=== PATIENT | male | born 1975 | race Caucasian/White ===

== ENCOUNTER 2017-02-18 00:13 | Outpatient (CLI) | payer MEDICAID | END 2017-02-18 00:14 | disposition EMS.NT | LOC: EMS 00:13 | PROVIDERS: ATTEND Surgery | DX: R41.82 Altered mental status, unspecified (principal) ==

== ENCOUNTER 2017-02-18 05:23 | Outpatient (CLI) | payer MEDICAID | END 2017-02-18 05:24 | disposition home or self-care (01) | LOC: LAB 05:23 | PROVIDERS: ATTEND Pathology Blood Banking & Transfusion Medicine | DX: Z01.89 Encounter for other specified special examinations (principal) | CPT/HCPCS: 36415 ==

== ENCOUNTER 2017-02-27 19:05 | Emergency (ER) | payer MEDICAID ==
[2017-02-27 19:17] VITALS: BP 151/84
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
[2017-02-27 20:01] LABS: BASOPHILS # (AUTO) 0.1 10^3/uL (0.0-0.1); BASOPHILS % (AUTO) 0.7 %; EOSINOPHILS # (AUTO) 0.3 10^3/uL (0.0-0.7); EOSINOPHILS % (AUTO) 3.4 %; HCT - HEMATOCRIT 44.6 % (42.0-52.0); HGB - HEMOGLOBIN 15.1 g/dL (14.0-18.0); LYMPHOCYTES % (AUTO) 25.3 %; MEAN CORPUSCULAR HEMOGLOBIN 31.2 pg (27.0-31.0); MEAN CORPUSCULAR HGB CONC 33.7 g/dL (32.0-36.0); MEAN CORPUSCULAR VOLUME 92.4 fL (80.0-94.0); MEAN PLATELET VOLUME 7.7 fL (7.4-11.4); MONOCYTES # (AUTO) 0.7 10^3/uL (0.0-1.0); MONOCYTES % (AUTO) 9.1 %; NEUTROPHILS # (AUTO) 4.8 10^3/uL (1.5-6.6); NEUTROPHILS % (AUTO) 61.5 %; RED BLOOD COUNT 4.83 10^6/uL (4.70-6.10); RED CELL DISTRIBUTION WIDTH 13.5 % (12.0-15.0); UNCORRECTED WHITE BLOOD COUNT 7.8 x10^3/uL; WHITE BLOOD COUNT 7.8 x10^3/uL (4.8-10.8)
[2017-02-27 20:20] LABS: ACETAMINOPHEN < 10 ug/mL (10-30); ALBUMIN/GLOBULIN RATIO 1.5 (1.0-2.2); BILIRUBIN,TOTAL 0.2 mg/dL (0.2-1.0); BUN - BLOOD UREA NITROGEN 19 mg/dL (6-20); CALCIUM 9.4 mg/dL (8.5-10.3); CARBON DIOXIDE - CO2 28 mmol/L (21-32); CHLORIDE 100 mmol/L (101-111); CREATININE 0.9 mg/dL (0.6-1.2); GFR - MDRD 92 (>89); GLUCOSE 90 mg/dL (70-100); LIPASE 22 U/L (22-51); POTASSIUM 3.9 mmol/L (3.5-5.0); SALICYLATE < 6.0 mg/dL; SODIUM 142 mmol/L (135-145); TOTAL PROTEIN 7.6 g/dL (6.7-8.2)
[2017-02-27 20:48] LABS: BILIRUBIN,URINE NEGATIVE (NEGATIVE)
[2017-02-27 20:49] LABS: UA CHARGE (STRIP ONLY) YES; UR CULTURE IF IND NOT INDICATED
== END 2017-02-27 21:20 | disposition home or self-care (01) ==
LOC: ED 19:05
DX: Z02.89 Encounter for other administrative examinations (principal); F20.9 Schizophrenia, unspecified; F14.10 Cocaine abuse, uncomplicated; F15.10 Other stimulant abuse, uncomplicated; F12.10 Cannabis abuse, uncomplicated
CPT/HCPCS: 36415; 80053; 80306; 80307; 80320; 80329; 81001; 81003; 83690; 85025; 87086; 93005; 99282

== ENCOUNTER 2018-03-11 13:12 | Emergency (ER) | payer MEDICAID ==
[2018-03-11] MEDS ORDERED: BUFFERED LIDOCAINE 10 ML SYRINGE SUBQ STA (14:08)
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
[2018-03-11 14:36] VITALS: BP 119/82
== END 2018-03-11 14:40 | disposition home or self-care (01) ==
LOC: ED 13:12
DX: S01.111A Laceration without foreign body of right eyelid and periocular area, initial encounter (principal); W22.8XXA Striking against or struck by other objects, initial encounter; H57.02 Anisocoria
CPT/HCPCS: 12011; 99282; 99283

== ENCOUNTER 2019-04-28 21:53 | Emergency (ER) | payer MEDICAID ==
--- NOTE | 2019-04-28 21:56 | ED Physician Documentation ---
History of Present Illness - Stated complaint Stated Complaint: WRIST LAC - Chief complaint Chief Complaint: MHE - History obtained from History obtained from: Patient (the patient is a 43 y/o m who states he is hearing voices that are telling him to injure himself. he reports he tried cutting his left wrist, he reports he is right hand dominant. the patient is here initially voluntarily but later while observing the patient the patient st ates that he wants to leave so he can kill himself. At this point the patient is no longer in a voluntary status he is involuntary.) Review of Systems Unable to obtain: Other (psychosis) PD PAST MEDICAL HISTORY - Past Medical History Psych: Anxiety, Schizophrenia - Past Surgical History Past Surgical History: No - Present Medications Home Medications: Ambulatory Orders Medication Instructions Recorded Confirmed Olanzapine [Zyprexa] 10 mg PO DAILY #20 tablet 08/08/15 PARoxetine HCl [Paxil] 20 mg PO DAILY 11/10/15 11/10/15 - Allergies Allergies/Adverse Reactions: Allergies Allergy/AdvReac Type Severity Reaction Status Date / Time alprazolam [From Xanax] Allergy Unknown Verified 04/28/19 21:56 - Social History Does the pt smoke?: No Smoking Status: Never smoker Does the pt drink ETOH?: No Does the pt have substance abuse?: No - Immunizations Immunizations are current?: Yes - POLST Patient has POLST: No PD ED PE NORMAL - Vitals Vital signs reviewed: Yes - General General: Alert and oriented X 3, No acute distress, Well developed/nourished - HEENT HEENT: Atraumatic, PERRL, Moist mucous membranes - Neck Neck: Supple, no meningeal sign - Cardiac Cardiac: RRR, Strong equal pulses - Respiratory Respiratory: No respiratory distress, Clear bilaterally - Abdomen Abdomen: Normal bowel sounds, Soft, Non tender, Non distended - Derm Derm: Normal color, Warm and dry, No rash, Other (superficial abrasions over v olar aspect of left wrist.) - Extremities Extremities: No deformity, Other (superficial abrasions to left wrist, radian/median/ulnar motor and sensory exam are intact. silt, compartment soft, nv intact, radial pulses 2+ and symettric, ) - Neuro Neuro: Alert and oriented X 3, cash person 2-12 intact, No motor deficit, No sensory deficit, Normal speech - Psych Psych: Other (suicidal) Results - Vitals Vitals: Vital Signs - 24 hr 04/28/19 04/28/19 04/29/19 21:56 22:46 00:20 Temperature 36.6 C Heart Rate 62 Respiratory 14 16 16 Rate Blood Pressure 150/100 H O2 Saturation 95 04/29/19 04/29/19 00:45 04:29 Temperature Heart Rate Respiratory 15 14 Rate Blood Pressure O2 Saturation Oxygen O2 Source Room air - EKG (time done) 22:40 Rate: Rate (enter#) (81), Other (no stemi) Rhythm: NSR [place]: Normal Ischemia: Other (early repol) - Labs Labs: Laboratory Tests 04/28/19 04/28/19 04/28/19 22:10 22:33 22:33 WBC 8.9 RBC 5.24 Hgb 16.3 Hct 47.9 MCV 91.4 MCH 31.1 H MCHC 34.0 RDW 12.1 Plt Count 270 MPV 9.9 Neut # (Auto) 6.7 H Lymph # (Auto) 1.5 [place] # (Auto) 0.5 Eos # (Auto) 0.0 Baso # (Auto) 0.0 Absolute Nucleated RBC 0.00 Nucleated RBC % 0.0 Sodium 138 Potassium 3.7 Chloride 97 L Carbon Dioxide 30 Anion Gap 11.0 BUN 20 Creatinine 1.0 Estimated GFR (MDRD) 81 L Glucose 136 H Calcium 9.7 TSH Urine Color YELLOW Urine Clarity CLEAR Urine pH 5.5 Ur Specific [place] >=1.030 H Urine Protein TRACE Urine Glucose (UA) NEGATIVE Urine Ketones NEGATIVE Urine Occult Blood NEGATIVE Urine Nitrite NEGATIVE Urine Bilirubin NEGATIVE Urine Urobilinogen 0.2 (NORMAL) Ur Leukocyte Esterase NEGATIVE Ur Microscopic Review NOT INDICATED Urine Culture Comments NOT INDICATED Salicylates < 6.0 Urine Opiates Screen NEGATIVE Ur Oxycodone Screen NEGATIVE Urine Methadone Screen NEGATIVE Ur Propoxyphene Screen NEGATIVE Acetaminophen < 10 L Ur Barbiturates Screen NEGATIVE Ur Tricyclics Screen NEGATIVE Ur Phencyclidine Scrn NEGATIVE Ur Amphetamine Screen NEGATIVE U Methamphetamines Scrn NEGATIVE U Benzodiazepines Scrn NEGATIVE Urine Cocaine Screen NEGATIVE U Cannabinoids Screen NEGATIVE Ethyl Alcohol < 5.0 04/28/19 22:33 WBC RBC Hgb Hct MCV MCH MCHC RDW Plt Count MPV Neut # (Auto) Lymph # (Auto) [place] # (Auto) Eos # (Auto) Baso # (Auto) Absolute Nucleated RBC Nucleated RBC % Sodium Potassium Chloride Carbon Dioxide Anion Gap BUN Creatinine Estimated GFR (MDRD) Glucose Calcium TSH 8.75 H Urine Color Urine Clarity Urine pH Ur Specific [place] Urine Protein Urine Glucose (UA) Urine Ketones Urine Occult Blood Urine Nitrite Urine Bilirubin Urine Urobilinogen Ur Leukocyte Esterase Ur Microscopic Review Urine Culture Comments Salicylates Urine Opiates Screen Ur Oxycodone Screen Urine Methadone Screen Ur Propoxyphene Screen Acetaminophen Ur Barbiturates Screen Ur Tricyclics Screen Ur Phencyclidine Scrn Ur Amphetamine Screen U Methamphetamines Scrn U Benzodiazepines Scrn Urine Cocaine Screen U Cannabinoids Screen Ethyl Alcohol PD MEDICAL DECISION MAKING - ED course Complexity details: other (case d/w telepsych who recommends inpatient admission for acute psychosis/schizophrenia. social work consulted for placement.) Departure - Departure Disposition: 65 Psych Hosp/Unit DC/Xfer Clinical Impression: Suicidal thoughts Schizophrenia Qualifiers: Schizophrenia type: unspecified Qualified Code(s): F20.9 - Schizophrenia, unspecified Psychosis Qualifiers: Psychosis type: schizophrenia Schizophrenia type: unspecified Qualified Code(s): F20.9 - Schizophrenia, unspecified Condition: Fair
[2019-04-28] MEDS ORDERED: BACITRACIN ZINC OINT 1 PACKET TOP STA (22:04)
[2019-04-28] MEDS ORDERED: TETANUS/DIPHTHERIA/PERTUSSIS 0.5 ML SYRINGE IM ONE (22:04)
[2019-04-28 22:29] LABS: MUDS CUTOFF CONCENTRATIONS CUTOFF CONC BELOW:
[2019-04-28 22:33] LABS: BILIRUBIN,URINE NEGATIVE (NEGATIVE); GLUCOSE, URINE (UA) NEGATIVE (NEGATIVE); KETONES,URINE (UA) NEGATIVE (NEGATIVE); LEUKOCYTE ESTERASE, URINE NEGATIVE (NEGATIVE); NITRITE,URINE NEGATIVE (NEGATIVE); OCCULT BLOOD,URINE NEGATIVE (NEGATIVE); PH,URINE 5.5 PH (5.0-7.5); PROTEIN,URINE TRACE mg/dL (NEGATIVE); UROBILINOGEN,URINE 0.2 (NORMAL) E.U./dL (NORMAL)
[2019-04-28 22:39] LABS: BASOPHILS % (AUTO) 0.5 %; EOSINOPHILS % (AUTO) 0.1 %; HGB - HEMOGLOBIN 16.3 g/dL (14.0-18.0); LYMPHOCYTES # (AUTO) 1.5 10^3/uL (1.5-3.5); LYMPHOCYTES % (AUTO) 17.3 %; MEAN CORPUSCULAR HEMOGLOBIN 31.1 pg (27.0-31.0); MEAN CORPUSCULAR VOLUME 91.4 fL (80.0-94.0); MEAN PLATELET VOLUME 9.9 fL (7.4-11.4); MONOCYTES # (AUTO) 0.5 10^3/uL (0.0-1.0); MONOCYTES % (AUTO) 6.1 %; NEUTROPHILS # (AUTO) 6.7 10^3/uL (1.5-6.6); NEUTROPHILS % (AUTO) 75.7 %; PLT - PLATELET COUNT 270 10^3/uL (130-450); RED BLOOD COUNT 5.24 10^6/uL (4.70-6.10); RED CELL DISTRIBUTION WIDTH 12.1 % (12.0-15.0); WHITE BLOOD COUNT 8.9 x10^3/uL (4.8-10.8)
[2019-04-28 22:40] LABS: CLARITY,URINE CLEAR (CLEAR)
[2019-04-28 22:43] LABS: AMPHETAMINE SCREEN,URINE NEGATIVE (NEGATIVE); BENZODIAZEPINES SCREEN, URINE NEGATIVE (NEGATIVE); COCAINE SCREEN URINE NEGATIVE (NEGATIVE); METHADONE SCREEN, URINE NEGATIVE (NEGATIVE); METHAMPHETAMINES SCREEN, URINE NEGATIVE (NEGATIVE); OPIATE SCREEN, URINE NEGATIVE (NEGATIVE); OXYCODONE SCREEN, URINE NEGATIVE (NEGATIVE); PROPOXYPHENE SCREEN, URINE NEGATIVE (NEGATIVE); TRICYCLIC ANTIDEPRESSANT,URINE NEGATIVE (NEGATIVE)
[2019-04-28 22:53] LABS: ACETAMINOPHEN < 10 ug/mL (10-30); BUN - BLOOD UREA NITROGEN 20 mg/dL (6-20); CALCIUM 9.7 mg/dL (8.5-10.3); CARBON DIOXIDE - CO2 30 mmol/L (21-32); CHLORIDE 97 mmol/L (101-111); GFR - MDRD 81 (>89); GLUCOSE 136 mg/dL (70-100); SALICYLATE < 6.0 mg/dL; SODIUM 138 mmol/L (135-145)
[2019-04-28] MEDS ORDERED: OLANZapine ODT 5 MG TABLET TL STA (22:57)
--- NOTE | 2019-04-29 01:28 | TELEPSYCH PHYS NOTE ---
Telepsych Note - CHIEF COMPLAINT/HX OF PRESENT ILLNESS Cheif Complaint and History of Present Illness: HPI: "Stress I guess" PT said he has not been able to eat or sleep for 3 days. He says his mood is "stressed" HE c/o poor energy. PT said he has felt paranoid and unsafe. He is not sure if he has thoughts of harm to others but said he has thoughts of "killing ghosts " and CAH to kill himself. When asked about h/o violence, he said "not too much" he does have a h/o using cocaine, marijuana and benzos. He has been hospitalized once before. He does not have an outpatient provider. - SI/HI/SELF HARM SI/HI/SELF HARM (CURRENT OR HISTORY OF):: SI, Cutting SI/HI/Self Harm Text (Current or History of):: Pt has been hearing voices telling him to cut, so he made superficial cuts to his wrist. - VIOLENCE/LEGAL/COLLATERAL Violence - Legal - Collateral: Pt said he has thoughts of "killing ghosts" but when asked about h/o violence, he said "not too bad" but did not elaborate - PSYCHIATRIC HX/TREATMENT HX Psychiatric: Anxiety, Schizophrenia - DRUG/ALCOHOL HX Substance Use and Type: Marijuana, Cocaine/Crack, Other - MEDICAL HX Does the pt have a hx of MRSA?: No Neurological History: None Eyes, Ears, Nose, Throat: None Cardiovascular: None Respiratory: None Skin: None Endocrine/Autoimmune: None Gastrointestinal: None Urinary: None Musculoskeletal: None Blood Disorders: None - HOME MEDICATIONS Home Meds (as last confirmed): Patient History Medication Instructions Recorded Confirmed PARoxetine HCl [Paxil] 20 mg PO DAILY 11/10/15 11/10/15 - ALLERGIES Allergies (as last confirmed): Allergies Allergy/AdvReac Type Severity Reaction Status Date / Time alprazolam [From Xanax] Allergy Unknown Verified 04/28/19 21:56 - FAMILY PSYCH/SUICIDE/SOCIAL HX-MENTAL Family - Suicide - Social Hx and Mental Status Exam: PT said his Dad and Uncle were alcoholics. No suicides PT says he lives alone and has no support system. He witnessed harm to others and used to have nightmares, "not lately" He has a 19y/o daughter. He has never . 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 He denied access to guns. When asked about legal issues, he said "nothing major" MSE: PT was in bed, did not provide eye contact. His speech was rapid. He endorsed CAh to harm himself and thoughts of "killing ghosts" His thought process was somewhat disorganized. He expressed feeling paranoid. insight and judgment were limited - PATIENT PROBLEM LIST (1) Schizophrenia Qualifiers: Schizophrenia type: unspecified Qualified Code(s): F20.9 - Schizophrenia, unspecified Impression: 43y/o swm with h/o psychosis presents with CAH to harm himself and subsequently cut his wrist. He admits to h/o substance use but UDS and BAL are currently negative. Pt said he has thoughts of "killing ghosts". He does not have an outpatient provider and he has not been compliant with outpatient meds/treatment. He says he has not slept or eaten for 3 days. substance issues run in his family. Given CAH to harm himself and thoughts of killing "ghosts" along with s/o paranoia and noncompliance with outpatient care, recommend admit to inpatient psych for safety and stabilization. - TREATMENT/PHARMACOLOGICAL RECOMMENDATION Treatment - Pharmacological - Therapy Recommendations: REcommend admit to inpatient psych for mood stabilization and safety. Resume Zyprexa 10mg po qhs along with zyprexa 5mg po/IM q 4hr prn agitation/psychosis, NTE 40mg qd - TIME SPENT & PROVIDER LOCATION Telepsych consultation conducted via videoconferencing: Yes List names and roles of persons who participated in consult: Mercedes Mckeon MD/psychiatrist and Janki Garg/patient Telepsych Provider Location: [place] Time Telepsych consult began: 04:15 Time Telepsych consult completed: 04:45
[2019-04-29] MEDS ORDERED: NICOTINE 14 MG PATCH TOP STA ×2 (08:38→13:38)
[2019-04-29] MEDS ORDERED: OLANZapine ODT 5 MG TABLET TL STA (12:33)
[2019-04-29 13:49] VITALS: BP 136/94
== END 2019-04-29 14:00 ==
LOC: ED 21:53
DX: S60.812A Abrasion of left wrist, initial encounter (principal); X78.9XXA Intentional self-harm by unspecified sharp object, initial encounter; Z23 Encounter for immunization; F20.9 Schizophrenia, unspecified; I51.7 Cardiomegaly
CPT/HCPCS: 36415; 80048; 80306; 80307; 80320; 80329; 81003; 84443; 85025; 90471; 90715; 93005; 99281; 99285; A9270; G0425; 81001; 87086